=== PATIENT | female | born 1970 | race Caucasian/White ===

== ENCOUNTER 2016-08-24 19:10 | Emergency (ER) | payer OTHER ==
[~2016-08-24] VITALS: Ht 175.3 cm; Wt 147.1 kg
[~2016-08-24 19:10] MED LIST: ADVAIR 250/501 DISK IH; ADVAIR HFA120 INHAL1 IH; ALLEGRA-D 121 TABLET PO; ALPRAZOLAM0.25 M2 PO; ALTOPREV40 MG PO; ASPIR 8181 M1 PO; AZELASTINE137 MCG/0. BOTH NARES; AZITHROMYCIN250 MG PO; BENTYL20 MG PO; CYANOCOBALAM1000 MCG PO; DUONEB 2.5-0.5 M3 ML AEROSOL; EYE DROP15 ML BOTH EYES; FLONASE16 G1 BOTH NARES; FOLIC ACID1 MG PO; HYDROCODON-ACE1 EAC7 PO; IBUPROFEN200 M1 PO; LISINOPRIL20 MG PO; MACROBID100 MG PO; MEDROL DOSEPAK4 MG PO; METFORMIN HCL500 M1 PO; PREDNISONE10 MG PO; PREDNISONE20 MG PO; PROAIR HFA8.5 GM IH; SERTRALINE HCL50 MG PO; SINGULAIR10 MG PO; TIZANIDINE HCL2 M1 PO; VITAMIN B-650 M1 PO; VITAMIN D2000 UNI1 PO; XANAX0.5 MG PO; XARELTO15 MG PO; XARELTO20 MG PO; ZANTAC150 MG PO; ZOFRAN ODT4 MG PO; ZOLOFT100 MG PO
[2016-08-24] MEDS ORDERED: FIORICET,ESG1 TABLET PO (20:37)
[2016-08-24 20:43] VITALS: BP 130/87
== END 2016-08-24 20:43 | disposition home or self-care (01) ==
LOC: EME 19:10
DX: S06.0X0A Concussion without loss of consciousness, initial encounter (principal); M54.2 Cervicalgia; W22.8XXA Striking against or struck by other objects, initial encounter; G43.909 Migraine, unspecified, not intractable, without status migrainosus; Z86.711 Personal history of pulmonary embolism; Z79.01 Long term (current) use of anticoagulants; F17.200 Nicotine dependence, unspecified, uncomplicated
CPT/HCPCS: 70450; 99281; 99283; J1885

== ENCOUNTER → 2016-09-13 | Outpatient (CLI) | payer OTHER ==
[~2016-09-13] VITALS: Ht 172.7 cm; Wt 145.2 kg
[~2016-09-13] MED LIST changes: +ALLEGRA-D 241 TABLET PO; +FIORICET,ESG1 TABLET PO; +GLUCOPHAGE500 MG PO; +WOMEN'S DAILY1 EACH PO
[2016-09-13 08:46] LABS: POINT-OF-CARE METER ID UU13113694
== END | disposition home or self-care (01) ==
LOC: AMB 08:00
PROVIDERS: Internal Medicine
DX: D12.3 Benign neoplasm of transverse colon (principal); K57.30 Diverticulosis of large intestine without perforation or abscess without bleeding; K63.3 Ulcer of intestine; K64.8 Other hemorrhoids; D64.9 Anemia, unspecified; J45.909 Unspecified asthma, uncomplicated; I10 Essential (primary) hypertension; E11.9 Type 2 diabetes mellitus without complications; E78.5 Hyperlipidemia, unspecified; E72.12 Methylenetetrahydrofolate reductase deficiency; E66.9 Obesity, unspecified; Z68.42 Body mass index [BMI] 45.0-49.9, adult; G47.33 Obstructive sleep apnea (adult) (pediatric); Z86.711 Personal history of pulmonary embolism; Z82.49 Family history of ischemic heart disease and other diseases of the circulatory system; Z83.3 Family history of diabetes mellitus; Z80.8 Family history of malignant neoplasm of other organs or systems; Z83.49 Family history of other endocrine, nutritional and metabolic diseases; F17.200 Nicotine dependence, unspecified, uncomplicated; Z79.01 Long term (current) use of anticoagulants; Z79.84 Long term (current) use of oral hypoglycemic drugs; Z88.0 Allergy status to penicillin; Z88.1 Allergy status to other antibiotic agents; Z88.5 Allergy status to narcotic agent
CPT/HCPCS: 82948; 88305; 93005

== ENCOUNTER → 2016-10-19 | Outpatient (CLI) | payer OTHER ==
[~2016-10-19] VITALS: Ht 175.3 cm; Wt 145.5 kg
[2016-10-19 13:10] LABS: POINT-OF-CARE METER ID UU13113694
[2016-10-19 13:45] LABS: POINT-OF-CARE METER ID UU13113675
== END | disposition home or self-care (01) ==
LOC: AMB 12:27
PROVIDERS: Surgery
PROC: 0DJ08ZZ Inspection of Upper Intestinal Tract, Via Natural or Artificial Opening Endoscopic (ICD-10-PCS; principal; 2016-10-19)
DX: K21.9 Gastro-esophageal reflux disease without esophagitis (principal); E66.01 Morbid (severe) obesity due to excess calories; Z68.42 Body mass index [BMI] 45.0-49.9, adult; I10 Essential (primary) hypertension; E11.9 Type 2 diabetes mellitus without complications; Z86.718 Personal history of other venous thrombosis and embolism; Z86.711 Personal history of pulmonary embolism; E72.12 Methylenetetrahydrofolate reductase deficiency; G47.33 Obstructive sleep apnea (adult) (pediatric); M19.90 Unspecified osteoarthritis, unspecified site; E78.5 Hyperlipidemia, unspecified; K76.0 Fatty (change of) liver, not elsewhere classified; F41.9 Anxiety disorder, unspecified; F32.9 Major depressive disorder, single episode, unspecified; F17.200 Nicotine dependence, unspecified, uncomplicated; Z88.0 Allergy status to penicillin; Z88.5 Allergy status to narcotic agent
CPT/HCPCS: 82948

== ENCOUNTER 2017-03-03 12:55 | Emergency (ER) | payer OTHER ==
[~2017-03-03] VITALS: Ht 175.3 cm; Wt 118.1 kg
[~2017-03-03 12:55] MED LIST changes: +LOVENOX60 MG/0.6 SC; +NICORETTE2 M1 BC; +WOMEN'S DAILY1 EAC2 PO; -WOMEN'S DAILY1 EACH PO; +WOMEN'S MULTI200 MCG PO
[2017-03-03 15:43] LABS: ADD MIUA? YES; BILIRUBIN NEGATIVE; BLOOD NEGATIVE; COLOR AMBER ((YELLOW)); GLUCOSE (STRIP) NEGATIVE; KETONES 5; LEUKOCYTES NEGATIVE; NITRITE NEGATIVE; PROTEIN (STRIP) 30; SPECIFIC GRAVITY 1.032 (1.000-1.030)
[2017-03-03 15:56] LABS: BACTERIA RARE /HPF; CALCIUM OXALATE CRYSTALS 4+ /HPF; EPITHELIAL CELLS RARE /HPF; MUCUS 4+ /LPF; RED BLOOD CELLS 0-5 /HPF (0-5); UCUL ADDED? NO; UNCLASSIFIED CRYSTALS 1+ /HPF; WHITE BLOOD CELLS 0-5 /HPF (0-5)
[2017-03-03] MEDS ORDERED: FLEXERIL10 MG PO (16:24)
[2017-03-03] MEDS ORDERED: PREDNISONE20 MG PO (16:24)
[2017-03-03] MEDS ORDERED: LIDODERM 5% P1 PATCH TD (16:24)
[2017-03-03 17:11] VITALS: BP 126/63
[2017-03-04] MEDS ORDERED: TRAMADOL HCL50 MG PO (19:25)
== END 2017-03-03 17:13 | disposition home or self-care (01) ==
LOC: EME 12:55
PROVIDERS: Nurse Practitioner Family
DX: M54.41 Lumbago with sciatica, right side (principal); Z98.84 Bariatric surgery status; Z88.0 Allergy status to penicillin
CPT/HCPCS: 72100; 81003; 99281; 99284; J7512

== ENCOUNTER 2017-08-11 12:41 | Emergency (ER) | payer OTHER ==
[~2017-08-11] VITALS: Ht 175.3 cm; Wt 104.5 kg
[~2017-08-11 12:41] MED LIST changes: +FLEXERIL10 MG PO; +LIDODERM 5% P1 PATCH TD; +TRAMADOL HCL50 MG PO
[2017-08-11 13:58] LABS: HEMATOCRIT 48.7 % (36.0-46.0); HEMOGLOBIN 16.6 G/DL (11.9-15.5); MCH 31.7 PG (29.0-34.0); MCHC 34.1 G/DL (30.0-36.0); MCV 93.1 FL (83-99); PLATELET COUNT 219 K/uL (156-360); RBC DIS.WIDTH-CV 12.6 % (11.8-14.6); RBC DIS.WIDTH-SD 43.1 % (39-53); RED BLOOD COUNT 5.23 M/uL (3.80-5.20); WHITE BLOOD COUNT 12.3 K/uL (4.1-10.2)
[2017-08-11 14:20] LABS: CHLORIDE 108 mEq/L (99-109); POTASSIUM 3.8 mEq/L (3.7-5.4); SODIUM 142 mEq/L (136-147)
[2017-08-11 14:21] LABS: GLUCOSE 87 mg/dL (70-99)
[2017-08-11 14:25] LABS: CREATININE 0.6 mg/dL (0.6-1.3); GFR ESTIMATE (CALCULATED) > 59 mL/min/
[2017-08-11 14:26] LABS: UREA NITROGEN (BUN) 16 mg/dL (9-23)
[2017-08-11] MEDS ORDERED: PEPCID20 MG PO (14:35)
[2017-08-11] MEDS ORDERED: BENADRYL50 MG PO (14:35)
[2017-08-11 14:45] VITALS: BP 133/95
== END 2017-08-11 14:47 | disposition home or self-care (01) ==
LOC: EME 12:41
PROVIDERS: Nurse Practitioner Family
DX: L25.9 Unspecified contact dermatitis, unspecified cause (principal); E11.9 Type 2 diabetes mellitus without complications; K21.9 Gastro-esophageal reflux disease without esophagitis; J45.909 Unspecified asthma, uncomplicated; E72.12 Methylenetetrahydrofolate reductase deficiency; F17.200 Nicotine dependence, unspecified, uncomplicated; Z79.01 Long term (current) use of anticoagulants; Z79.51 Long term (current) use of inhaled steroids; Z79.891 Long term (current) use of opiate analgesic; Z79.84 Long term (current) use of oral hypoglycemic drugs; Z98.84 Bariatric surgery status; Z86.711 Personal history of pulmonary embolism; Z87.442 Personal history of urinary calculi; Z86.79 Personal history of other diseases of the circulatory system; Z88.0 Allergy status to penicillin
CPT/HCPCS: 80048; 85027; 99281; 99284; J1100

== ENCOUNTER 2017-11-02 17:22 | Emergency (ER) | payer OTHER ==
[~2017-11-02] VITALS: Ht 175.3 cm; Wt 104.1 kg
[~2017-11-02 17:22] MED LIST changes: +BENADRYL50 MG PO; +PEPCID20 MG PO
[2017-11-02 23:09] LABS: APPEARANCE CLEAR ((CLEAR)); BILIRUBIN NEGATIVE; BLOOD NEGATIVE; COLOR YELLOW ((YELLOW)); GLUCOSE (STRIP) NEGATIVE; KETONES NEGATIVE; LEUKOCYTES NEGATIVE; NITRITE NEGATIVE; PROTEIN (STRIP) NEGATIVE; SPECIFIC GRAVITY 1.027 (1.000-1.030); UROBILINOGEN 0.2 MG/DL (0.2-1.0)
[2017-11-02] MEDS ORDERED: REGLAN10 MG PO (23:28)
[2017-11-02] MEDS ORDERED: FIORICET 50-301 EAC1 PO (23:28)
[2017-11-02] MEDS ORDERED: VALIUM2 MG PO (23:28)
[2017-11-02 23:50] VITALS: BP 138/78
== END 2017-11-02 23:51 | disposition home or self-care (01) ==
LOC: EME 17:22
PROVIDERS: Physician Assistant
DX: G44.209 Tension-type headache, unspecified, not intractable (principal); G43.009 Migraine without aura, not intractable, without status migrainosus; E86.0 Dehydration; M54.2 Cervicalgia; J45.909 Unspecified asthma, uncomplicated; I10 Essential (primary) hypertension; E11.9 Type 2 diabetes mellitus without complications; Z79.84 Long term (current) use of oral hypoglycemic drugs; Z86.711 Personal history of pulmonary embolism; Z79.01 Long term (current) use of anticoagulants; Z98.84 Bariatric surgery status; F17.200 Nicotine dependence, unspecified, uncomplicated
CPT/HCPCS: 81003; J1100; J2060; J2765; J7030